=== PATIENT | female | born 1960 | race American Indian/Alaskan Native ===

== ENCOUNTER 2016-12-12 00:37 | Emergency (ER) | payer MEDICAID ==
[2016-12-12] MEDS ORDERED: ATROVENT IH ONE ×2 (00:51→01:05)
[2016-12-12] MEDS ORDERED: PROVENTIL IH ONE ×4 (00:51→04:27)
--- NOTE | 2016-12-12 02:02 | Emergency Department Report ---
ED Shortness of Breath HPI - General Chief Complaint: Adult Asthma Stated Complaint: ASTHMA/WHEEZING Time Seen by Provider: 12/12/16 01:21 Source: patient Mode of arrival: Ambulatory Limitations: No Limitations - History of Present Illness Initial Comments: Pt is a 56 yr old female with a history of asthma presenting with SOB. Pt reports shortness of break with wheezing for the past two days. Pt reports it has gradually worsened despite treatments with her asthma meds. Otherwise no fevers, chills, NVD, SEBASTIAN, CP, abd pain, trauma, travel, or sick contacts. MD Complaint: shortness of breath, "asthma attack" -: Gradual - Related Data Previous Rx's Medication Instructions Recorded Last Taken Type ALBUTEROL NEB's [Proventil 0.083% 2.5 mg IH Q4HR PRN #30 neb 12/12/16 Unknown Rx NEBS] Albuterol Sulfate [Ventolin HFA] 2 puff IH Q4H PRN #1 hfa.aer.ad 12/12/16 Unknown Rx Fluticasone/Salmeterol [Advair 0 each INHALATION BID 30 Days 12/12/16 Unknown Rx 250-50 Diskus] Nebulizer/Compressor [Devilbiss 1 each MC Q4HR #1 each 12/12/16 Unknown Rx Pulmoneb Lt Comp-Neb] Prednisone [predniSONE (Pradeep) ER 50 mg PO QDAY #5 tab 12/12/16 Unknown Rx TAB] Allergies Allergy/AdvReac Type Severity Reaction Status Date / Time No Known Allergies Allergy Verified 12/16/13 05:04 ED Review of Systems ROS: Stated complaint: ASTHMA/WHEEZING Other details as noted in HPI Comment: All other systems reviewed and negative ED Past Medical Hx - Past Medical History Previous Medical History?: Yes Hx Asthma: Yes - Surgical History Past Surgical History?: No Additional Surgical History: Pt denies, unknown - poor historian - Social History Smoking Status: Never Smoker - Medications Home Medications: Home Medications Medication Instructions Recorded Confirmed Last Taken Type ALBUTEROL NEB's [Proventil 0.083% 2.5 mg IH Q4HR PRN #30 neb 12/12/16 Unknown Rx NEBS] Albuterol Sulfate [Ventolin HFA] 2 puff IH Q4H PRN #1 hfa.aer.ad 12/12/16 Unknown Rx Fluticasone/Salmeterol [Advair 0 each INHALATION BID 30 Days 12/12/16 Unknown Rx 250-50 Diskus] Nebulizer/Compressor [Devilbiss 1 each MC Q4HR #1 each 12/12/16 Unknown Rx Pulmoneb Lt Comp-Neb] Prednisone [predniSONE (Pradeep) ER 50 mg PO QDAY #5 tab 12/12/16 Unknown Rx TAB] ED Physical Exam - General Limitations: No Limitations General appearance: alert, in no apparent distress - Head Head exam: Present: atraumatic, normocephalic - Eye Eye exam: Present: normal appearance - ENT ENT exam: Present: mucous membranes moist - Neck Neck exam: Present: normal inspection - Respiratory Respiratory exam: Present: wheezes, decreased breath sounds. Absent: respiratory distress, rhonchi, stridor - Cardiovascular Cardiovascular Exam: Present: regular rate, normal rhythm. Absent: systolic murmur, diastolic murmur, rubs, gallop - GI/Abdominal GI/Abdominal exam: Present: soft, normal bowel sounds - Extremities Exam Extremities exam: Present: normal inspection - Back Exam Back exam: Present: normal inspection - Neurological Exam Neurological exam: Present: alert, oriented X3 - Psychiatric Psychiatric exam: Present: normal affect, normal mood - Skin Skin exam: Present: warm, dry, intact, normal color. Absent: rash ED Course Vital Signs 12/12/16 12/12/16 12/12/16 00:43 00:53 01:00 Temperature 98.5 F Pulse Rate 116 H 87 108 H Pulse Rate [ Anterior Bilateral Lower Lobe] Respiratory 22 21 22 Rate Respiratory Rate [Anterior Bilateral Lower Lobe] Blood Pressure 153/95 Blood Pressure 150/105 [Right] O2 Sat by Pulse 91 100 100 Oximetry 12/12/16 12/12/16 12/12/16 01:30 02:00 02:30 Temperature Pulse Rate 108 H 111 H 107 H Pulse Rate [ Anterior Bilateral Lower Lobe] Respiratory 18 21 21 Rate Respiratory Rate [Anterior Bilateral Lower Lobe] Blood Pressure 153/93 160/91 140/84 Blood Pressure [Right] O2 Sat by Pulse 99 91 91 Oximetry 12/12/16 03:16 Temperature Pulse Rate Pulse Rate [ 83 Anterior Bilateral Lower Lobe] Respiratory Rate Respiratory 16 Rate [Anterior Bilateral Lower Lobe] Blood Pressure Blood Pressure [Right] O2 Sat by Pulse Oximetry - Reevaluation(s) Reevaluation #1: 12/12/16 04:28 Pt re-evaluated, patient reports significant improvement with steroids and breathing treatments. Pt still has wheezing, but improved. Will ordered another 5mg albuterol nebulizer Pt feels comfortable being discharged after breathing treatments, wheezing much improved Critical care attestation.: If time is entered above; I have spent that time in minutes in the direct care of this critically ill patient, excluding procedure time. ED Disposition Clinical Impression: Asthma attack Disposition: DISCHARGED TO HOME OR SELFCARE Is pt being admited?: No Condition: Stable Instructions: Asthma (ED) Prescriptions: ALBUTEROL NEB's [Proventil 0.083% NEBS] 2.5 mg IH Q4HR PRN #30 neb PRN Reason: Wheezing Albuterol Sulfate [Ventolin HFA] 2 puff IH Q4H PRN #1 hfa.aer.ad PRN Reason: Shortness Of Breath Fluticasone/Salmeterol [Advair 250-50 Diskus] 0 each INHALATION BID 30 Days Nebulizer/Compressor [Samirbiss Pulmoneb Lt Comp-Neb] 1 each MC Q4HR #1 each Prednisone [predniSONE (Pradeep) ER TAB] 50 mg PO QDAY #5 tab Referrals: PRIMARY CARE, [Primary Care Provider] - 3-5 Days
--- NOTE | 2016-12-12 04:06 | XRay Report ---
FINAL REPORT PROCEDURE: XR CHEST ROUTINE 2V TECHNIQUE: PA and lateral chest radiographs were obtained. CPT 29019 HISTORY: SOB COMPARISON: No prior studies are available for comparison. FINDINGS: Heart: Normal. Mediastinum/Vessels: Normal. Lungs/Pleural space: Normal. Bony thorax: No acute osseous abnormality. Other: IMPRESSION: There is no evidence of an acute cardiopulmonary process.
[2016-12-12 06:20] VITALS: BP 139/90
== END 2016-12-12 06:20 | disposition home or self-care (01) ==
LOC: ED 00:37
DX: J45.909 Unspecified asthma, uncomplicated (principal)
CPT/HCPCS: 71020; 94640; 96374; 99283; J2930